=== PATIENT | male | born 1960 | race American Indian/Alaskan Native ===

== ENCOUNTER 2018-04-22 23:01 | Emergency (ER) | payer SELFPAY ==
[2018-04-22 23:01] VITALS: BMI 27.3
[2018-04-22 23:07] VITALS: BP 133/87; PULSE 93; TEMP 99.8; O2SAT 98
--- NOTE | 2018-04-23 00:41 | C.PDOC ---
History Of Present Illness 57 y/o male c/o pain and swelling to right knee after he twisted Sunday while carrying a television. Time Seen by Provider: 04/22/18 23:27 Chief Complaint (Nursing): Lower Extremity Problem/Injury History Per: Patient History/Exam Limitations: no limitations Onset/Duration Of Symptoms: Days (1) Current Symptoms Are (Timing): Still Present Severity: Moderate - Knee Description Of Injury: Twisted Past Medical History Reviewed: Historical Data, Nursing Documentation, Vital Signs Vital Signs: Last Vital Signs Temp 99.8 F H 04/22/18 23:05 Pulse 93 H 04/22/18 23:05 Resp 16 04/22/18 23:05 BP 133/87 04/22/18 23:05 Pulse Ox 98 04/22/18 23:05 - Medical History PMH: No Chronic Diseases Family History: States: Unknown Family Hx - Social History Hx Tobacco Use: Yes Hx Alcohol Use: Yes Hx Substance Use: No - Immunization History Hx Tetanus Toxoid Vaccination: Yes Hx Influenza Vaccination: No Hx Pneumococcal Vaccination: No Review Of Systems Musculoskeletal: Positive for: Other (knee pain right). Negative for: Neck Pain, Shoulder Pain Skin: Negative for: Rash Neurological: Negative for: Weakness, Numbness Physical Exam - Physical Exam Appears: Non-toxic, No Acute Distress Skin: Warm, Dry, No Rash Head: Atraumatic, Normacephalic Extremity: No Normal ROM (dec rom right knee), Tenderness (diffuse tenderness to right knee), Swelling (right knee., jordi proximal medial aspect ) Pulses: Left Dorsalis Pedis: Normal, Right Dorsalis Pedis: Normal Neurological/Psych: Oriented x3, Normal Speech, Normal Cognition, Normal Motor, Normal Sensation ED Course And Treatment O2 Sat by Pulse Oximetry: 98 Medical Decision Making Medical Decision Making: twisted right knee with swelling, mild warm, mild dec rom. no fx noted on xray. tx with nsaids and knee immobilizer, d/c with ortho f/u Disposition Counseled Patient/Family Regarding: Studies Performed, Diagnosis, Need For Followup, Rx Given - Disposition Referrals: Austin Rouse III, MD [Staff Provider] - [facility] [Outside] Disposition: HOME/ ROUTINE Disposition Time: 01:05 Additional Instructions: Wear knee immobilizer for comfort and support. Take ibuprofen for pain. Cold compresses to help with swelling. Keep leg elevated when possible. Follow up in medical clinic and with Dr Rouse-orthopedist. Prescriptions: Ibuprofen [Motrin] 600 mg PO TID #30 tab Instructions: Internal Derangement of the Knee (DC) Forms: [facility] (Lebanese), General Discharge Instructions - Clinical Impression Clinical Impression: Right knee sprain
[2018-04-23 01:13] VITALS: RESP 20
--- NOTE | 2018-04-23 07:32 | RAD ---
Date of service: 04/23/2018 PROCEDURE: Right Knee Radiographs. HISTORY: swelling. warm, twisted COMPARISON: None. FINDINGS: BONES: Spurring present No fracture. Clustered ossification projecting over the lateral posterior femoral condyle noted-location common for developmental variant fabella-atypical multiple fabellae as versus intra-articular loose bodies are differential considerations. JOINTS: Mild osteoarthritis. JOINT EFFUSION: Small probable OTHER FINDINGS: Quadriceps and patellar insertional enthesophyte IMPRESSION: No fracture or lytic lesion. Small effusion-probable Other findings as above.
== END 2018-04-23 01:12 | disposition home or self-care (01) ==
LOC: C.ER 23:01
DX: S83.91XA Sprain of unspecified site of right knee, initial encounter (principal); X50.1XXA Overexertion from prolonged static or awkward postures, initial encounter; Z72.0 Tobacco use